=== PATIENT | male | born 1975 | race Caucasian/White ===

== ENCOUNTER 2016-12-18 18:45 | Observation (INO) | payer OTHER ==
[~2016-12-18] VITALS: Ht 175.3 cm; Wt 85.7 kg
--- NOTE | 2016-12-18 18:47 | NUR ---
PT BIBA FROM HOME FOLLOWING 1 WEEK OF NON-RADIATING SUB-STERNAL CHEST PAIN. PER PATIENT, HE HAS HAD HYPERTENSION THROUGHOUT THE WEEK, BUT BECAME CONCERNED WHEN HIS SBP WAS IN 180'S TODAY. PT CALLED HIS DOCTOR, WHO SUGGESTED THAT PT COME TO ED FOR EVALUATION. PER EMS, PT'S BP WAS 150/114 UPON ARRIVAL ON SCENE, 124/88 AFTER 1 X SL NITRO. BLOOD GLUCOSE 121. PT CURRENTLY STATES THAT CP HAS SUBSIDED SINCE THE NITRO, BUT HE NOW HAS A "POUNDING" HEADACHE
--- NOTE | 2016-12-18 18:51 | ED CARDIAC/CP/PALPITATIONS ---
History of Present Illness General Chief Complaint: Chest Pain Stated Complaint: CP Source: patient Exam Limitations: no limitations Vital Signs & Intake/Output Vital Signs & Intake/Output Vital Signs Date Time Temp Pulse Resp B/P B/P Pulse O2 O2 Flow FiO2 Mean Ox Delivery Rate 12/19 2300 97.9 68 16 120/68 97 Room Air 12/19 1600 98.1 72 20 112/70 95 Room Air 12/19 1557 132/84 12/19 0830 97.7 60 18 126/88 94 Room Air 12/19 0816 128/88 12/19 0406 98.1 65 16 128/88 93 Room Air 12/19 0314 97.2 65 22 128/80 98 Room Air ED Intake and Output 12/20 0000 12/19 1200 Intake Total 650 0 Output Total Balance 650 0 Intake, IV 0 Intake, Oral 650 0 Number 0 Bowel Movements Patient 189 lb Weight Allergies Coded Allergies: NSAIDS (Non-Steroidal Anti-Inflamma (GI UPSET 12/18/16) codeine (VOMITING 12/18/16) hydrocodone (From VICODIN) (VOMITING 12/18/16) Reconcile Medications Amlodipine Besylate 10 MG TABLET 1 TAB PO DAILY HIGH BLOOD PRESSURE (Reported ) Chlorthalidone 25 MG TABLET 1 TAB PO DAILY HIGH BLOOD PRESSURE (Reported) Duloxetine HCl 60 MG CAPSULE.DR 2 CAP PO DAILY DEPRESSION/NERVE PAIN ( Reported) Gabapentin 300 MG CAPSULE 1 CAP PO QAM PAIN CONTROL (Reported) Gabapentin 300 MG CAPSULE 2 CAP PO NOON PAIN CONTROL (Reported) Gabapentin 300 MG CAPSULE 3 CAP PO QPM PAIN CONTROL (Reported) Pantoprazole Sodium 40 MG TABLET.DR 1 TAB PO DAILY ACID REFLUX (Reported) Ropinirole HCl (Requip) 3 MG TABLET 1 TAB PO QPM RLS (Reported) Triage Nurses Notes Reviewed? yes Onset: Abrupt Duration: week(s): (1), intermittent Timing: single episode today Quality/Severity: moderate, ingestion Location: epigastric Radiation: arms (left arm), epigastric Activities at Onset: none Prior Chest Pain/Card Workup: no prior chest pain Nitro Today/Relief: 0.4 mg x 1, provided by EMS, complete relief Aspirin Today: no aspirin today Associated Symptoms: shortness of breath HPI: 41-year-old male history of acid reflux and hypertension biba for evaluation of chest pain and shortness of breath. Patient reports that over the last week has been having intermittent chest pain and shortness of breath both at rest and on exertion. Chest pain lasts for usually less than an hour before going away completely. Chest pain is located in the epigastric area and radiates downward into the abdomen. Patient also reports some radiation into the left arm. Patient reports that chest pain returned again today more severe than previous. Patient took his blood pressure and it was 189/111 so he decided to call the ambulance transported to the emergency department for evaluation. When EMS arrived his blood pressure was 150s over 90s and they administered one sublingual nitroglycerin tablet and patient's chest pain was completely resolved after the nitroglycerin. Currently patient is chest pain free and is not complaining of any shortness of breath. He does report a headache that developed after taking the nitroglycerin. He has never had any previous cardiac history or cardiac cath. He denies any crack cocaine use. In trauma or surgeries. No history of blood clots. Patient denies any nausea, vomiting, sweats, chills, lower extremity edema, hemoptysis, back pain. (ALLY MAXWELL,JUAN JOSÉ) Past History Medical History Any Pertinent Medical History? see below for history Surgical History Surgical History: none Psychosocial History What is your primary language Lao Family History Hx Contributory? Yes (ALLY MAXWELL,JUAN JOSÉ) Review of Systems Review of Systems Constitutional: Reports: see HPI. Respiratory: Reports: see HPI, short of breath. Cardiovascular: Reports: see HPI, chest pain. Neurological/Psychological: Reports: see HPI, headache. (ALLY MAXWELL,JUAN JOSÉ) Physical Exam Physical Exam General Appearance: well developed/nourished, no apparent distress, alert, awake , anxious Head: atraumatic, normal appearance Eyes: Bilateral: normal appearance, PERRL, EOMI. Ears, Nose, Throat: normal pharynx, normal ENT inspection, hearing grossly normal Neck: normal inspection, supple, full range of motion Respiratory: normal breath sounds, chest non-tender, no respiratory distress, lungs clear Cardiovascular: regular rate/rhythm, normal peripheral pulses Peripheral Pulses: 2+ radial (R), 2+ radial (L), 2+ dorsalis pedis (R), 2+ dorsalis pedis (L) Gastrointestinal: normal bowel sounds, soft, non-tender Back: normal inspection, normal range of motion Extremities: normal inspection, normal capillary refill, normal range of motion, no edema Neurologic/Psych: no motor/sensory deficits, awake, alert, oriented x 3, normal gait, normal mood/affect Reflexes: 2+: knee (R), knee (L). Skin: intact, normal color, warm/dry Lymphatic: no anterior cervical harlan Core Measures ACS in differential dx? Yes Severe Sepsis Present: No Septic Shock Present: No (BLACK PA-C,JUAN JOSÉ) Progress Differential Diagnosis: AMI, aortic dissection, CHF/pulm edema, costochondritis, musculoskeletal pain, myocarditis, pancreatitis, pericarditis, pneumonia, pneumothorax, pulmonary embolism, respiratory failure, unstable angina Plan of Care: Orders Procedure Date/time Status Nothing by Mouth 12/20 B Active MAGNESIUM 12/20 06 Active LIPID PANEL 12/20 06 Active HEPATIC FUNCTION PANEL 12/20 06 Active CBC WITHOUT DIFFERENTIAL 12/20 06 Active BASIC ELECTROLYTES PLUS BUN&CR 12/20 06 Active DIPYRIDAMOLE STRESS W/NUC IMAG 12/20 UNK Active Heart Healthy Diet 12/19 B Complete CBC WITHOUT DIFFERENTIAL 12/19 0829 Complete Change service to 12/19 0729 Active THYROID STIMULATING HORMONE 12/19 06 Complete TROPONIN LEVEL 12/19 06 Complete LIPID PANEL 12/19 06 Complete FREE T4 12/19 06 Complete EKG 12/19 0600 Active Vital Signs 12/19 0435 Complete Teach/Educate 12/19 0435 Active Pain Treatment and Response 12/19 0435 Active Nutritional Intake, Monitor 12/19 0435 Active Isolation 12/19 0435 Active Intake & Output 12/19 0435 Complete Patient Care Conference 12/19 0435 Active Activity/Ambulation 12/19 0435 Active Pathway - chart 12/19 0314 Active Pathway - chart 12/19 0313 Active Saline Lock 12/19 0203 Active Misc Message 12/19 0203 Active ED Holding Orders 12/19 0203 Active Vital Signs 12/19 0203 Active Code Status 12/19 0203 Active Lab Add-on Test 12/19 UNK Active VTE Mechanical Prophylaxis 12/19 UNK Active URINE DRUGS OF ABUSE 12/18 2159 Complete Intake & Output 12/18 2022 Active GLYCOSYLATED HGB 12/18 1915 Complete Current Medications Sig/José Start time Last Medication Dose Stop Time Status Admin Dipyridamole 50 MG ONE ONE 12/20 0900 AC (Persantine I.v. 5MG 12/20 0901 Per Ml (10ML Han)) Dextrose/Water 30 ML (D5w (Persantine Stress Test)) Gabapentin 900 MG QPM 12/19 2200 AC 12/19 (Neurontin) 2300 Ropinirole HCl 3 MG AT BEDTIME 12/19 2200 AC 12/19 (Requip) 2300 Atorvastatin Calcium 80 MG 1700 12/19 1700 AC 12/19 (Lipitor) 1557 Omeprazole 20 MG DAILY AC 12/19 1433 AC 12/19 (Prilosec) 1622 Sucralfate 1,000 MG BID 12/19 1433 AC 12/19 (Carafate) 2300 Losartan Potassium 25 MG DAILY 12/19 1247 AC 12/19 (Cozaar) 1557 Gabapentin 600 MG 1200 12/19 1200 AC 12/19 (Neurontin) 1303 Aspirin 81 MG DAILY 12/19 1024 AC 12/19 (Aspirin) 1303 Amlodipine Besylate 10 MG DAILY 12/19 1000 AC 12/19 (Norvasc) 0816 Duloxetine HCl 120 MG DAILY 12/19 1000 AC 12/19 (Cymbalta) 0816 Enoxaparin Sodium 40 MG DAILY 12/19 1000 AC 12/19 (Lovenox) 0816 Gabapentin 300 MG QAM 12/19 1000 AC (Neurontin) Tramadol HCl 50 MG Q6 PRN 12/19 0815 AC (Ultram) Acetaminophen 650 MG Q8P PRN 12/19 0315 AC (Tylenol) Laboratory Tests 12/19/16 0840: Troponin I < 0.01, Triglycerides 359 H, Cholesterol 323 H, LDL Cholesterol, Calc 212 H, HDL Cholesterol 40, Cholesterol/HDL Ratio 8 H, TSH 2.630, Free T4 0.93, CBC w Diff NO MAN DIFF REQ, RBC 5.98, MCV 87.0, MCH 28.7, RDW 14.2, MPV 8.1, Gran % 57.6, Lymphocytes % 28.7, Monocytes % 11.5 H, Eosinophils % 1.9, Basophils % 0.3, Absolute Granulocytes 4.2, Absolute Lymphocytes 2.1, Absolute Monocytes 0.8 H, Absolute Eosinophils 0.1, Absolute Basophils 0, PUBS MCHC 33.0 Patient will need a workup for chest pain of possible cardiac origin. 8:37 PM: Initial EKG and troponin were negative. Pt continues to be chest pain free. D-dimer is negative. Patient will require an additional EKG and troponin. Patient's heart score currently is 3. History is moderately suspicious, he is less than age 45, he does have some nonspecific T waves and allergies on EKG, and he has risk factors including smoking and HTN. Will follow up on additional troponins and EKGs. Care discussed with Dr Bui and he agrees with the plan. 11:25PM: EKG and troponin recheck pending. Pt signed out to Dr John. (JUAN JOSÉ CANALES PA-C) Diagnostic Imaging: Viewed by Me: Radiology Read. Initial ED EKG: sinus tach, borderline LAD, non-specific T wave abn inferior leads, borderline prolonged QT >475 Hand-Off Endorsed To: COLLEEN JOHN MD Endorsed Time: 2321 Pending: consult (cardiology ), EKG, labs (JUAN JOSÉ CANALES PA-C) Repeat EKG: unchanged (COLLEEN JOHN MD) Departure Departure Disposition: STILL A PATIENT Condition: Stable Clinical Impression Primary Impression: Chest pain Qualifiers: Chest pain type: unspecified Qualified Code: R07.9 - Chest pain, unspecified Referrals: UNKNOWN Departure Forms: Customer Survey General Discharge Information (JUAN JOSÉ CANALES PA-C) Observation Note Spoke With: DONTE BUI,[facility] Physician Advisor Notified: BENTLEY BUI DO Place Patient In: Non-ED OBS Care Area Rationale for Observation: My rational for observation is as follows . pt with nitro responsive chest pain in the context of sbp of 189... ptmerits monitoring and stress test in AM. pt is chest pain free in ED after nitro... discussed with dr. euceda. (COLLEEN JOHN MD) Critical Care Note Critical Care Note Critical Care Time: non-applicable (JUAN JOSÉ CANALES PA-C) Critical Care Note Critical Care Time: 30-74 min (COLLEEN JOHN MD)
--- NOTE | 2016-12-18 19:20 | NUR ---
PT EVALUATED BY JUAN JOSÉ BARNES
--- NOTE | 2016-12-18 19:24 | NUR ---
PT STATES HEADACHE FROM NITRO IS FADING. CONTINUES TO DENY HEST PAIN AT THIS TIME.
[2016-12-18 19:34] LABS: ABSOLUTE BASOPHIL COUNT 0.1 /CUMM (0.0-0.2); ABSOLUTE EOSINOPHIL COUNT 0.2 /CUMM (0.0-0.7); ABSOLUTE GRANULOCYTE CT 6.5 /CUMM (1.4-6.5); ABSOLUTE LYMPH COUNT 2.5 /CUMM (1.2-3.4); BASOPHIL % 0.8 % (0.0-2.0); EOSINOPHIL % 1.7 % (0-5); GRANULOCYTE % 63.6 % (42.2-75.2); MEAN CORPUSCULAR HGB 28.8 PG (27.0-31.0); MEAN CORPUSCULAR HGB CONC 33.2 G/DL (33.0-37.0); MEAN CORPUSCULAR VOLUME 86.7 FL (80.0-94.0); MEAN PLATELET VOLUME 7.9 FL (7.4-10.4); PLATELET COUNT 287 /CUMM (130-400); RED BLOOD CELL CT 6.34 /CUMM (4.70-6.10); WHITE BLOOD CELL COUNT 10.3 /CUMM (4.8-10.8)
--- NOTE | 2016-12-18 19:42 | RADIOLOGY REPORT ---
EXAMINATION: XR PORTABLE CHEST CLINICAL INFORMATION: Chest pain, shortness of breath. COMPARISON: None TECHNIQUE: Portable frontal view of the chest was obtained. FINDINGS: The cardiomediastinal silhouette is unremarkable. The lungs and pleural spaces appear clear without evidence of congestion, consolidation, or significant appearing effusion or atelectasis. There is no evidence of pneumothorax or pulmonary edema. Included osseous structures appear largely unremarkable. IMPRESSION: Unremarkable single view chest x-ray.
[2016-12-18] MEDS ORDERED: CHLORTHALIDONE25 M1 PO (20:11)
[2016-12-18] MEDS ORDERED: AMLODIPINE BESY10 M1 PO (20:11)
[2016-12-18] MEDS ORDERED: PANTOPRAZOLE SO40 M1 PO (20:12)
[2016-12-18] MEDS ORDERED: DULOXETINE HCL60 MG PO (20:13)
[2016-12-18] MEDS ORDERED: GABAPENTIN300 M2 PO ×3 (20:14→20:17)
[2016-12-18] MEDS ORDERED: REQUIP3 M1 PO (20:19)
--- NOTE | 2016-12-18 21:41 | NUR ---
RE-ASSESSMENT PERFORMED, PT DENIES CHEST PAIN OR SOB. CM SHOWS NSR, HR 90. ALL V.S.S. CLINICAL STATUS UNCHANGED.
--- NOTE | 2016-12-18 21:51 | NUR ---
VITALS TAKEN. PT UP TO RESTROOM TO VOID
--- NOTE | 2016-12-18 22:01 | NUR ---
URINE TRIO SENT TO LAB.
--- NOTE | 2016-12-18 23:26 | NUR ---
REPEAT EKG DONE BY [facility] BLOOD DRAWN DIRECTED FOR 2ND TROPONIN PT MOVED TO ROOM # 10 AND ENDORSED TO [employer]ER.
--- NOTE | 2016-12-19 00:54 | NUR ---
HOSPITALIST CALLED TO EVALUATE PT.
--- NOTE | 2016-12-19 01:57 | NUR ---
PT BED ASSIGNMENT 189-2
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
--- NOTE | 2016-12-19 03:09 | NUR ---
REPORT TO VIN. PT IS STABLE. NO CO OF CP
--- NOTE | 2016-12-19 03:28 | NUR ---
WHILE DOING DISCHARGE VS, HEPLOCK NOTED TO NOT BE HOSPITAL TYPE, LOCK DISCONTINUED, NEW HHEPLOCK INSERTED.
[2016-12-19 04:06] VITALS: BP 128/88
[2016-12-19 08:30] VITALS: BP 126/88
[2016-12-19 09:26] LABS: ABSOLUTE BASOPHIL COUNT 0 /CUMM (0.0-0.2); ABSOLUTE EOSINOPHIL COUNT 0.1 /CUMM (0.0-0.7); ABSOLUTE GRANULOCYTE CT 4.2 /CUMM (1.4-6.5); ABSOLUTE LYMPH COUNT 2.1 /CUMM (1.2-3.4); ABSOLUTE MONOCYTE COUNT 0.8 /CUMM (0.10-0.60); BASOPHIL % 0.3 % (0.0-2.0); EOSINOPHIL % 1.9 % (0-5); GRANULOCYTE % 57.6 % (42.2-75.2); MEAN CORPUSCULAR HGB 28.7 PG (27.0-31.0); MEAN PLATELET VOLUME 8.1 FL (7.4-10.4); PLATELET COUNT 252 /CUMM (130-400); RBC DISTRIBUTION WIDTH 14.2 % (11.5-14.5); RED BLOOD CELL CT 5.98 /CUMM (4.70-6.10); WHITE BLOOD CELL COUNT 7.3 /CUMM (4.8-10.8)
[2016-12-19] MEDS ORDERED: AMBIEN5 M1 PO (11:34)
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
--- NOTE | 2016-12-19 12:37 | ECHOCARDIOGRAM REPORT ---
SOURAV MOREJON Age: 41 : 1975 Gender: M Exam Date: 12/19/2016 10:57 Exam Location: [address] [facility] Ht (in): 69 Wt (lb): 189 BSA: 2.06 BP: 128 / 88 Ordering Physician: SHELBY MCINTYRE MD Referring Physician: SHELBY MCINTYRE MD Technologist: Ady Mesa [facility] Room Number: 189-8 Indications: Chest Pain Rhythm: Sinus Technical Quality: Fair, Technically difficult study FINDINGS Left Ventricle Normal size left ventricle. No obvious regional wall motion abnormalities. Normal left ventricular ejection fraction estimated at 60-65%. Right Ventricle Right ventricle not well visualized, grossly normal. Right Atrium Normal right atrial size. Left Atrium Normal left atrial size. Mitral Valve Structurally normal mitral valve. Trace mitral regurgitation. Aortic Valve Structurally normal trileaflet aortic valve. No aortic stenosis. No aortic regurgitation. Tricuspid Valve Tricuspid valve not well visualized, grossly normal. Trace tricuspid regurgitation. Pulmonic Valve Pulmonic valve not well visualized, grossly normal. Pericardium Normal pericardium. No pericardial effusion. Great Vessels Normal size aortic root and proximal ascending aorta. CONCLUSIONS 1. This was a technically difficult examination due to the patient's body habitus. 2. The aortic valve is trileaflet and normal. 3. The mitral valve appears anatomically normal. Minimal mitral insufficiency is present. 4. There is no significant pericardial fluid detected. 5. The left ventricular chamber size and systolic funtion appear normal with no obvious resting wall motion abnormalities. 6. Minimal tricuspid insufficiency is present. The RV systolic pressure could not be accurately assessed. Anna Hendricks M.D. (Electronically Signed) Final Date: 19 December 2016 12:37 MEASUREMENTS (Male / Female) Normal Values 2D ECHO LV Diastolic Diameter PLAX 4.5 cm 4.2 - 5.9 / 3.9 - 5.3 cm LV Systolic Diameter PLAX 2.7 cm 2.1 - 4.0 cm LV Fractional Shortening PLAX 40.0 % 25 - 46 % LV Ejection Fraction 2D Teich 70.8 % IVS Diastolic Thickness 1.1 cm LVPW Diastolic Thickness 1.0 cm LV Relative Wall Thickness 0.5 RV Internal Dim ED PLAX 3.5 cm 1.9 - 3.8 cm LVOT Diameter 2.0 cm Aortic Root Diameter 2.9 cm LA Systolic Diameter LX 3.3 cm 3.0 - 4.0 / 2.7 - 3.8 cm LA Volume 24.0 cm 18 - 58 / 22 - 52 cm Ascending Aorta Diameter 2.9 cm DOPPLER AV Peak Velocity 130.0 cm/s AV Peak Gradient 6.8 mmHg AV Mean Velocity 82.3 cm/s AV Mean Gradient 3.0 mmHg AV Velocity Time Integral 24.9 cm LVOT Peak Velocity 96.3 cm/s LVOT Peak Gradient 3.7 mmHg LVOT Mean Velocity 55.6 cm/s LVOT Mean Gradient 2.0 mmHg LVOT Velocity Time Integral 20.5 cm LVOT Stroke Volume 64.4 cm AV Area Cont Eq vti 2.6 cm AV Area Cont Eq pk 2.3 cm MV Peak Velocity 78.6 cm/s MV Peak Gradient 2.5 mmHg MV Mean Velocity 45.5 cm/s MV Mean Gradient 1.0 mmHg Mitral E Point Velocity 76.5 cm/s Mitral A Point Velocity 78.5 cm/s Mitral E to A Ratio 1.0 MV PHT Velocity 77.4 cm/s MV Deceleration [facility] 268.0 cm/s MV Pressure Half Time 86.6 ms MV Area PHT 2.5 cm MV Deceleration Time 282.0 ms TR Peak Velocity 238.0 cm/s TR Peak Gradient 22.7 mmHg Right Atrial Pressure 10.0 mmHg Pulmonary Artery Systolic Pressu 32.7 mmHg Right Ventricular Systolic Press 32.7 mmHg PV Peak Velocity 112.0 cm/s PV Peak Gradient 5.0 mmHg PV Mean Velocity 69.3 cm/s PV Mean Gradient 2.0 mmHg PV Velocity Time Integral 21.8 cm LV E' Lateral Velocity 11.3 cm/s Mitral E to LV E' Lateral Ratio 6.8 LV E' Septal Velocity 8.5 cm/s Mitral E to LV E' Septal Ratio 9.0
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
--- NOTE | 2016-12-19 13:55 | Event Note ---
Event Note Event Note: Discussed with Dr. Daly and Dr. Durham. It was decided that we will do Dipridamole stress test on 12/20/2016. If stress test is positive, then we will do angiography. Discussed with Dr. Griffin about the high hemoglobin and hematocrit. He wanted to know the baseline hemoglobin before thinking about polycythemia vera. We will get the records from Dr. Robbie Bloom. Discussed with the PCP. His baseline hemoglobin in 2014 was 17.3, hematocrit 48.5 and similar picture in 2013.
[2016-12-19 16:00] VITALS: BP 112/70
[2016-12-19 23:00] VITALS: BP 120/68
[2016-12-20 07:56] LABS: ABSOLUTE BASOPHIL COUNT 0 /CUMM (0.0-0.2); ABSOLUTE EOSINOPHIL COUNT 0.2 /CUMM (0.0-0.7); ABSOLUTE GRANULOCYTE CT 5.8 /CUMM (1.4-6.5); ABSOLUTE LYMPH COUNT 2.3 /CUMM (1.2-3.4); BASOPHIL % 0.4 % (0.0-2.0); EOSINOPHIL % 1.9 % (0-5); GRANULOCYTE % 61.8 % (42.2-75.2); MEAN CORPUSCULAR HGB CONC 34.2 G/DL (33.0-37.0); MEAN CORPUSCULAR VOLUME 84.8 FL (80.0-94.0); MEAN PLATELET VOLUME 8.3 FL (7.4-10.4); PLATELET COUNT 263 /CUMM (130-400); RBC DISTRIBUTION WIDTH 14.2 % (11.5-14.5); RED BLOOD CELL CT 5.78 /CUMM (4.70-6.10); WHITE BLOOD CELL COUNT 9.4 /CUMM (4.8-10.8)
[2016-12-20 08:55] VITALS: BP 130/80
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
--- NOTE | 2016-12-20 11:25 | PN- Cardiology ---
Subjective Subjective: No further chest discomfort. Also denies any palpitations, shortness of breath, etc. Maintaining sinus rhythm without any significant arrhythmias on telemetry. Objective Vital Signs and I&Os Vital Signs Date Time Temp Pulse Resp B/P B/P Pulse O2 O2 Flow FiO2 Mean Ox Delivery Rate 12/20 0855 97.5 64 16 130/80 94 Room Air 12/19 2300 97.9 68 16 120/68 97 Room Air 12/19 1600 98.1 72 20 112/70 95 Room Air 12/19 1557 132/84 Intake & Output 12/20 1600 12/20 0800 12/20 0000 12/19 1600 12/19 0800 12/19 0000 Intake Total 0 650 0 0 Output Total Balance 0 650 0 0 Intake, IV 0 0 0 Intake, Oral 0 650 0 Number 0 0 Bowel Movements Patient 189 lb 189 lb Weight Weight Reported by Patient Measurement Method Physical Exam: Well-developed, well-nourished middle-aged male in no acute distress. Vital signs: See above. Neck: No JVD, no bruits. Lungs: Clear to auscultation bilaterally. Heart: S1, S2 with no murmur, gallop, or rub appreciated. I fifth ICS at MCL. Abdomen: Soft, nontender, positive bowel sounds. Extremities: No edema. Peripheral pulses: Symmetrical and intact. Current Medications: Current Medications Sig/José Start time Last Medication Dose Route Stop Time Status Admin Acetaminophen 650 MG Q8P PRN 12/19 0315 AC PO Amlodipine Besylate 10 MG DAILY 12/19 1000 AC 12/19 PO 0816 Aspirin 81 MG DAILY 12/19 1024 AC 12/19 PO 1303 Atorvastatin Calcium 80 MG 1700 12/19 1700 AC 12/19 PO 1557 Dipyridamole 50 MG ONE ONE 12/20 0900 DC Dextrose/Water 30 ML IV 12/20 0901 Duloxetine HCl 120 MG DAILY 12/19 1000 AC 12/19 PO 0816 Enoxaparin Sodium 40 MG DAILY 12/19 1000 AC 12/19 SC 0816 Gabapentin 900 MG QPM 12/19 2200 AC 12/19 PO 2300 Gabapentin 600 MG 1200 12/19 1200 AC 12/19 PO 1303 Gabapentin 300 MG QAM 12/19 1000 AC PO Losartan Potassium 25 MG DAILY 12/19 1247 AC 12/19 PO 1557 Omeprazole 20 MG DAILY AC 12/19 1433 AC 12/19 PO 1622 Ropinirole HCl 3 MG AT BEDTIME 12/190 AC 12/19 PO 2300 Sucralfate 1,000 MG BID 12/19 1433 AC 12/19 PO 2300 Tramadol HCl 50 MG Q6 PRN 12/19 0815 AC PO Results Last 48 Hrs of Labs/Mics: Laboratory Tests 12/20/16 0640: Anion Gap 11, Estimated GFR > 60, BUN/Creatinine Ratio 20.0, Magnesium 2.0, Total Bilirubin 1.0, Direct Bilirubin 0.3, AST 40, ALT 83 H, Alkaline Phosphatase 98, Total Protein 7.2, Albumin 4.3, Triglycerides 351 H, Cholesterol 293 H, LDL Cholesterol, Calc 185 H, HDL Cholesterol 38 L, Cholesterol/HDL Ratio 8 H, CBC w Diff NO MAN DIFF REQ, RBC 5.78, MCV 84.8, MCH 29.0, RDW 14.2, MPV 8.3, Gran % 61.8, Lymphocytes % 25.0, Monocytes % 10.9 H, Eosinophils % 1.9, Basophils % 0.4, Absolute Granulocytes 5.8, Absolute Lymphocytes 2.3, Absolute Monocytes 1.0 H, Absolute Eosinophils 0.2, Absolute Basophils 0, PUBS MCHC 34.2 12/19/16 0840: Troponin I < 0.01, Triglycerides 359 H, Cholesterol 323 H, LDL Cholesterol, Calc 212 H, HDL Cholesterol 40, Cholesterol/HDL Ratio 8 H, TSH 2.630, Free T4 0.93, CBC w Diff NO MAN DIFF REQ, RBC 5.98, MCV 87.0, MCH 28.7, RDW 14.2, MPV 8.1, Gran % 57.6, Lymphocytes % 28.7, Monocytes % 11.5 H, Eosinophils % 1.9, Basophils % 0.3, Absolute Granulocytes 4.2, Absolute Lymphocytes 2.1, Absolute Monocytes 0.8 H, Absolute Eosinophils 0.1, Absolute Basophils 0, PUBS MCHC 33.0 12/18/160: Troponin I < 0.01 12/18/162158: Urine Opiates Screen < 100.00, Methadone Screen 51, Barbiturate Screen < 60, Ur Phencyclidine Scrn < 6.00, Amphetamines Screen < 100, U Benzodiazepines Scrn < 85, Urine Cocaine Screen < 50, Urine Cannabis Screen 9.60, Urinalysis LIGHT H, Urine Color YEL, Urine Clarity CLEAR, Urine pH 6.0, Ur Specific [place] 1.025, Urine Protein NEG, Urine Ketones NEG, Urine Nitrite NEG, Urine Bilirubin NEG, Urine Urobilinogen 0.2, Ur Leukocyte Esterase NEG, Ur Microscopic SEDIMENT EXAMINED, Urine RBC 1-3, Urine WBC RARE, Ur Epithelial Cells FEW, Urine Bacteria RARE H, Urine Mucus MOD H, Urine Hemoglobin TRACE-INTACT H, Urine Glucose NEG 12/18/162024: Lipase Cancelled 12/18/161916: Magnesium Cancelled 12/18/161914: Anion Gap 15, Estimated GFR > 60, BUN/Creatinine Ratio 17.5, Glucose 106 H, Hemoglobin A1c 5.5, Calcium 10.4 H, Magnesium 1.8, Total Bilirubin 0.8, AST 54, ALT 100 H, Alkaline Phosphatase 114, Troponin I < 0.01, Total Protein 8.2, Albumin 4.9, Globulin 3.3, Albumin/Globulin Ratio 1.5, Lipase 381 H, D-Dimer High Sensitivty < 200, CBC w Diff NO MAN DIFF REQ, RBC 6.34 H, MCV 86.7, MCH 28.8, RDW 14.0, MPV 7.9, Gran % 63.6, Lymphocytes % 24.1, Monocytes % 9.8 H, Eosinophils % 1.7, Basophils % 0.8, Absolute Granulocytes 6.5, Absolute Lymphocytes 2.5, Absolute Monocytes 1.0 H, Absolute Eosinophils 0.2, Absolute Basophils 0.1, PUBS MCHC 33.2 Recent Imaging Studies: Echocardiogram (12/19/2016): This was a technically difficult examination due to the patient's body habitus. The aortic valve is trileaflet and normal. The mitral valve appears anatomically normal. Minimal mitral insufficiency is present. There is no significant pericardial fluid detected. The left ventricular chamber size and systolic funtion appear normal with no obvious resting wall motion abnormalities. Minimal tricuspid insufficiency is present. The RV systolic pressure could not be accurately assessed. Assessment/Plan Assessment/Plan [id number] w/ hx heavy tobacco use, HTN, HLD, & FH for CAD who presented w/ 2 prolonged episodes of CP w/ the 2nd "relieved" by SL NTG 1 w/i 20 min, w/o ECG changes or troponin I elevation. Although, he has multiple risk factors for CAD, his presenting complaints had atypical features given their onset at rest and prolonged duration. Nonetheless , he does have multiple risk factors for CAD. Given his moderate pretest probability for CAD, a pharmacologic stress test was performed this morning. He had no electrocardiographic changes observed and the stress imaging portion of the study, as well as, the rest imaging portion of the study are pending. An echocardiogram would also be reasonable to assess for overall LV function, hypertrophy, wall motion, RV function, estimated PA pressure, etc. Fortunately, he has had no further chest discomfort and the plan will be for discharge for further outpatient evaluation and management if his stress test is negative for ischemia. Continue telemetry? Yes
[2016-12-20] MEDS ORDERED: ATORVASTATIN CA80 M1 PO ×2 (14:12→16:30)
[2016-12-20] MEDS ORDERED: CARAFATE1 G1 PO ×2 (14:12→16:30)
[2016-12-20] MEDS ORDERED: ASPIRIN EC81 M1 PO ×2 (14:13→16:30)
--- NOTE | 2016-12-20 14:19 | Patient Discharge Instructions ---
Discharge Instructions General Discharge Information You were seen/treated for: Chest pain and we evaluated for coronary disease by doing stress test Special Instructions: please follow up with business ethics professor with in a week of discharge. please follow up with stock checker if your blood count remain elevated. Please quit smoking. You can join free smoking cessation program of [facility]. Diet Continue normal diet: No Recommended Diet: Heart Healthy, Low Fat Acute Coronary Syndrome Inclusion Criteria At DC or during hospital stay patient has or had the following: ACS DIAGNOSIS No Discharge Core Measures Meds if any: Prescribed or Continued at Discharge Meds if any: NOT Prescribed or Continued at Discharge Congestive Heart Failure Inclusion Criteria At DC or during hospital stay patient has or had the following: CHF DIAGNOSIS No Discharge Core Measures Meds if any: Prescribed or Continued at Discharge Meds if any: NOT Prescribed or Continued at Discharge Cerebrovascular accident Inclusion Criteria At DC or during hospital stay patient has or had the following: CVA/TIA Diagnosis No Discharge Core Measures Meds if any: Prescribed or Continued at Discharge Meds if any: NOT Prescribed or Continued at Discharge Venous thromboembolism Inclusion Criteria VTE Diagnosis No VTE Type NONE VTE Confirmed by (Test) NONE Discharge Core Measures - Per Current guidelines, there needs to be overlap - treatment for the first 5 days of Warfarin therapy. - If discharged on Warfarin prior to 5 days of - overlap therapy, the patient will need to be - assessed for post discharge needs including - *Post discharge parental anticoagulation - *Warfarin and/or parental anticoagulation education - *Follow up date to check INR post discharge At least 5 days overlap therapy as Inpatient No Meds if any: Prescribed or Continued at Discharge Note: Overlap Therapy is Warfarin and Anticoagulant Meds if any: NOT Prescribed or Continued at Discharge
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
--- NOTE | 2016-12-20 15:15 | NUCLEAR MEDICINE REPORT ---
PERSANTINE STRESS AND RESTING SPECT MYOCARDIAL PERFUSION IMAGING STUDY WITH GATED SPECT IMAGES: CLINICAL INDICATION: Angina. PROCEDURE: Regional myocardial perfusion was assessed using a 1 day protocol. Stress images were obtained on 12/20/2016 following the intravenous administration of 18.7 mCi Tc 99m Myoview. Stress consisted of 50 mg Persantine given intravenously. Following the sestamibi injection, 125 mg aminophylline was given intravenously. Rest images were obtained 12/20/2016 following the intravenous administration of 30.7 mCi Technetium 99m Myoview. Single photon emission tomographic (SPECT) images were obtained. SPECT images were acquired in a 64 x 64 matrix of 64 projections over 180 degrees. These were reconstructed into standard short axis, horizontal and vertical long axis cardiac projections. FINDINGS: The post stress images demonstrate the left ventricular chamber to be normal in size. There is homogeneous distribution of activity in the left ventricular myocardium with no regions of abnormally decreased activity noted. The resting images also demonstrate homogeneous distribution of activity in the left ventricular myocardium, and are not significantly changed from the post stress images. The images were obtained using a gated SPECT technique, which permits visualization of wall motion and calculation of the left ventricular ejection fraction. No left ventricular wall motion abnormalities are noted on either the stress or resting study. The calculated left ventricular ejection fraction is 67% on the stress study. No previous study is available for comparison. IMPRESSION: Normal Persantine stress and resting myocardial perfusion study with normal left ventricular wall motion and ejection fraction.
--- NOTE | 2016-12-20 15:55 | IV DIPYRIDAMOLE NUCLEAR STRESS ---
Clinical Diagnosis: Chest Pain Customer Consulting Manager: Citlali Thompson IV DIPYRIDAMOLE INFUSED: 50 mg IV AMINOPHYLLINE INFUSED: 125 mg PATIENT WEIGHT: 189 lbs INTERPRETATION: The patient's baseline EKG revealed sinus rhythm and poor R wave progression in leads V1-V3 at 55 BPM. Baseline B/P 148/90 mm Hg. The patient received 50 mg of dipyridamole infused intravenously over a 4 minute period. TC-99M or Myoview was injected after dipyridamole infusion. The patient complained of feeling "warm and " that promptly resolved after the administration of IV aminophylline 125 mg x 1. There were no EKG changes seen following pharmacologic infusion. Arrhythmias: None IMPRESSION: The test was supervised by the interpreting Information Technology Internship, who was in attendance during the entire test. No EKG evidence of stress induced myocardial ischemia. See separately dictated Nuclear Report.
[2016-12-20 16:24] VITALS: BP 144/88
== END 2016-12-20 19:05 ==
LOC: ERH 18:45 → 1NO 12-19 00:41 → ERHI 12-19 00:41 → ENRESERV 12-19 01:46 → 1NO 12-19 03:48
PROVIDERS: Internal Medicine; Internal Medicine Adolescent Medicine; Physician Assistant Medical; ADMIT Student in an Organized Health Care Education/Training Program
DX: R07.9 Chest pain, unspecified (principal); E78.5 Hyperlipidemia, unspecified; E78.1 Pure hyperglyceridemia; I10 Essential (primary) hypertension; F17.200 Nicotine dependence, unspecified, uncomplicated; K21.9 Gastro-esophageal reflux disease without esophagitis; Z82.49 Family history of ischemic heart disease and other diseases of the circulatory system
CPT/HCPCS: 36415; 78452; 80307; 81001; 82436; 93005; 93010; 93016; 93017; 93306; 96372; A9502; G0378; J1245; J1650; J3490

== ENCOUNTER → 2018-02-03 | Day surgery (SDC) | payer OTHER ==
[~2018-02-03] VITALS: Ht 175.3 cm; Wt 95.3 kg
[~2018-02-03] MED LIST: AMBIEN5 M1 PO; AMLODIPINE BESY10 M1 PO; ASPIRIN EC81 M1 PO; ATORVASTATIN CA80 M1 PO; CARAFATE1 G1 PO; CHLORTHALIDONE25 M1 PO; DULOXETINE HCL60 MG PO; GABAPENTIN300 M2 PO; MEDROL4 M2 PO; PANTOPRAZOLE SO40 M1 PO; PERCOCET 5-3251 EACH PO; REQUIP3 M1 PO; VALIUM5 M2 PO
--- NOTE | 2018-02-03 14:04 | Operative Report ---
Operative/Inv Procedure Report Surgery Date: 02/03/18 Name of Procedure: Robotic laparoscopic 12 cm mesh repair of reducible umbilical hernia Pre-Operative Diagnosis: Reducible umbilical hernia Post-Operative Diagnosis: Same Estimated Blood Loss: scant Surgeon/Radiation Monitor: Mehreen BUI,Anil BARNES Anesthesia: general endotracheal tube Operative/Procedure Note Note: Patient was positioned supine on the table. After successful induction of general anesthesia the abdomen was clipped prepped and draped in usual sterile fashion. The abdominal skin is marked to guide where the mesh will lay, centered under the defect, and where the 3 8 mm robotic trochars will be positioned, centered in the left anterior axillary line between the ribs and the iliac crest. After injection of local anesthetic at a spot in the mid to lateral left subcostal area, a horizontal 1 cm incision was made with a 15 blade. Using the plastic pointed-tipped translucent 8 mm with a metal robotic trocar and the camera inserted, the abdominal wall was traversed through this incision, watching on the screen, as the trocar passes through the layers, alternating colors, yellow fat white fascia red muscle, until the tip just seems to rosas the inner thin peritoneal layer. At that point, I stop pushing and check if it's open by turning on the gas. If the belly insufflates then you know you can advance that large trocar into an empty space more directly without injuring the viscera. The gas was turned on to 15 mm. At this point you can see the umbilical ventral defect, the incarcerated fat and omentum was reduced. Next the 2 remaining 8 mm robotic trochars are placed one in the mid abdomen axillary line as mentioned in one lower down above the iliac crest. The robot then is brought to the patient attached docked and targeted. Then on the near side a peritoneal flap is started by scoring it measuring roughly 6 cm from the defect towards the left first scoring the peritoneum in a vertical line and then completing the incision with cautery keeping the flap thin paying particular care to not include the transversalis fascia or even the rectus sheath posterior leaf, and continuing that flap across to the right past the defect also on that side at least 6 cm, the defect was approximately 2. This defect was then closed with a running continuous 0 V lock, absorbable. We then chose a Velcro type of mesh not coated sized it to 12 cm marked the rough surface rolled up like a scroll and stuffed down one of the trochars centered it over the defect on the near side there was one part that was growing a little bit we tacked that down into place with interrupted 3-0 Vicryl suture otherwise the mesh laid nicely and flat we had stopped corners to prevent curling it fit well within the flap that we had created and then we closed the flap that vertical line on the near side with a running 2-0 V lock suture. Next we checked for hemostasis and then undocked letting the gas escape pulling out the instruments and the trochars these 3 incisions were small there was no fascial closure needed and we then closed the skin with subcuticular 4-0 Monocryl, and then Mastisol, Steri-Strips and Band-Aids. Overall estimated blood loss was minimal, lap and sponge counts were correct, wound expectancy was clean, IV fluids crystalloid, complications none, patient tolerated the procedure well, did not significantly rice during extubation and was returned to the recovery room in satisfactory condition.
== END ==
LOC: STS 06:40
DX: K42.9 Umbilical hernia without obstruction or gangrene (principal); I10 Essential (primary) hypertension; K21.9 Gastro-esophageal reflux disease without esophagitis; F17.200 Nicotine dependence, unspecified, uncomplicated; G47.33 Obstructive sleep apnea (adult) (pediatric); M19.90 Unspecified osteoarthritis, unspecified site
CPT/HCPCS: 49652; 64488; S2900; 36415; C1781; J0131; J0690; J2250; J3490

== ENCOUNTER 2018-02-08 23:27 | Emergency (ER) | payer OTHER ==
[~2018-02-08] VITALS: Ht 175.3 cm; Wt 95.3 kg
--- NOTE | 2018-02-09 00:52 | CT SCAN REPORT ---
EXAMINATION: CT ABDOMEN AND PELVIS WITHOUT CONTRAST CLINICAL INFORMATION: Left lower quadrant pain. COMPARISON: None TECHNIQUE: Multidetector volumetric imaging was performed from the superior aspect of the liver through the pubic symphysis. Sagittal and coronal reformatted images were obtained on the technologist's workstation. DLP: 596 mGy-cm FINDINGS: LUNG BASES: The visualized lung bases are unremarkable. LIVER, GALLBLADDER, AND BILIARY TREE: The liver is normal in size, shape, and attenuation. No focal hepatic lesion or biliary ductal dilatation is present. The gallbladder is unremarkable with no evidence of radiopaque gallstones, gallbladder wall thickening, or obvious pericholecystic inflammatory changes. PANCREAS: Unremarkable. SPLEEN: Unremarkable. ADRENAL GLANDS: Unremarkable. KIDNEYS AND URETERS: The kidneys are normal in size, shape, and attenuation. No hydronephrosis, hydroureter, or calculi seen. No perinephric stranding. BLADDER: Unremarkable. GASTROINTESTINAL TRACT: The stomach is unremarkable. The small bowel is normal in caliber. There is no obstruction. Normal appendix. No colonic wall thickening or inflammation. Minimal diverticulosis of the sigmoid colon. No diverticulitis. No free air or free fluid. There is very faint stranding in the fat adjacent to the descending colon, with the adjacent bowel appearing unremarkable. On coronal imaging this raises the possibility of epiploic appendagitis. ABDOMINAL WALL: No significant hernia is appreciated. LYMPH NODES: Normal. VASCULAR: Normal caliber aorta with mild atherosclerotic calcifications. PELVIC VISCERA: The prostate and seminal vesicles are unremarkable. OSSEOUS STRUCTURES: No acute or suspicious osseous abnormality. Mild degenerative change throughout the spine. Irregularity of the left iliac bone likely associated with a graft harvest site. IMPRESSION: Minimal colonic diverticulosis without convincing evidence for diverticulitis. There is minimal inflammation in the left lower quadrant fat adjacent to the descending colon with the adjacent colon appearing unremarkable. This raises the possibility of epiploic appendagitis.
[2018-02-09 01:37] LABS: ABSOLUTE BASOPHIL COUNT 0.2 /CUMM (0.0-0.2); ABSOLUTE EOSINOPHIL COUNT 0.2 /CUMM (0.0-0.7); ABSOLUTE LYMPH COUNT 3.5 /CUMM (1.2-3.4); BASOPHIL % 1.5 % (0.0-2.0); EOSINOPHIL % 1.2 % (0-5); GRANULOCYTE % 62.5 % (42.2-75.2); HEMATOCRIT 47.7 % (42-52); MEAN CORPUSCULAR HGB CONC 34.5 G/DL (33.0-37.0); MEAN CORPUSCULAR VOLUME 86.8 FL (80.0-94.0); MEAN PLATELET VOLUME 8.2 FL (7.4-10.4); PLATELET COUNT 286 /CUMM (130-400); WHITE BLOOD CELL COUNT 12.8 /CUMM (4.8-10.8)
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
[2018-02-09] MEDS ORDERED: DILAUDID2 M1 PO ×3 (03:14→09:28)
[2018-02-09 03:16] VITALS: BP 144/88
== END 2018-02-09 03:29 ==
LOC: ERH 23:27
PROVIDERS: Physician Assistant Medical
DX: G89.18 Other acute postprocedural pain (principal)
CPT/HCPCS: 74176; 96372

== ENCOUNTER 2018-03-12 21:12 | Inpatient (IN) | payer OTHER ==
[~2018-03-12] VITALS: Ht 175.3 cm; Wt 91.7 kg
[~2018-03-12 21:12] MED LIST changes: +DILAUDID2 M1 PO
[2018-03-12 21:41] LABS: ABSOLUTE BASOPHIL COUNT 0 /CUMM (0.0-0.2); ABSOLUTE EOSINOPHIL COUNT 0.1 /CUMM (0.0-0.7); ABSOLUTE GRANULOCYTE CT 5.2 /CUMM (1.4-6.5); ABSOLUTE LYMPH COUNT 2.9 /CUMM (1.2-3.4); ABSOLUTE MONOCYTE COUNT 0.7 /CUMM (0.10-0.60); BASOPHIL % 0.5 % (0.0-2.0); EOSINOPHIL % 1.2 % (0-5); GRANULOCYTE % 58.1 % (42.2-75.2); HEMATOCRIT 51.4 % (42-52); MEAN CORPUSCULAR HGB 29.3 PG (27.0-31.0); MEAN CORPUSCULAR HGB CONC 34.1 G/DL (33.0-37.0); MEAN PLATELET VOLUME 7.5 FL (7.4-10.4); PLATELET COUNT 316 /CUMM (130-400); RBC DISTRIBUTION WIDTH 13.1 % (11.5-14.5); RED BLOOD CELL CT 5.98 /CUMM (4.70-6.10); WHITE BLOOD CELL COUNT 8.9 /CUMM (4.8-10.8)
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
[2018-03-13 09:15] VITALS: BP 136/77
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
[2018-03-13 13:20] VITALS: BP 141/92
[2018-03-13 13:27] VITALS: BP 141/92
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
[2018-03-13] MEDS ORDERED: LYRICA150 M1 PO (15:03)
[2018-03-13 16:22] VITALS: BP 146/94
[2018-03-13 19:51] VITALS: BP 160/94
[2018-03-13 21:24] VITALS: BP 152/93
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
[2018-03-14] VITALS (11 sets, daily range): BP systolic 128–159; BP diastolic 73–98
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
--- NOTE | 2018-03-14 16:19 | CP SOUTH PROGRESS NOTE PSYCH ---
Psych (Inpt) Progress Note Progress Note Progress Note: Edwin is a 42 year old M with hx depression, suicidal ideation and alcohol abuse. He was admitted for worsening depressive symptoms, relapse of alcohol and anxiety in the context of stopping his medication after a surgery. Today, pt feels "good" and denied any issues. He reported good sleep and appetite. He denied any issue with energy level or anxiety. HE thinks restarting his medication will help with his mood and anxiety "just give time". He denied any suicidal thought, plan or wishes of . He denied any hallucination. He denied any medication side effect. PER RN report, pt did well. Denied any suicidality. He did not require CIWA. No behavioral issues. MMSE: PT was AOx3. He was appropriately dress and well groomed. Good eye contact. He was cooperative and engaged. His thoughts were linear and goal directed. No suicidal thought or homicidal thoughts or psychosis or halluicnation. His speech was normal rate. His insight and judgement is fair. Diagnoses: Major Depressive Disorder, recurrent, currently severe with out psychosis Alcohol abuse Assessment: He is doing better today. No mood issue or suicidality or withdrawal symptoms. Will continue medication. Treatment Plan: Current Medications Sig/José Start time Last Medication Dose Route Stop Time Status Admin Amlodipine Besylate 10 MG DAILY 03/13 1250 AC 03/14 PO 0810 Benztropine Mesylate 1 MG Q6P PRN 03/13 1215 AC PO Benztropine Mesylate 1 MG Q6P PRN 03/13 1215 AC IM Fluticasone 2 SPRAY DAILY 03/14 1112 AC 03/14 Propionate IHSAN 1228 Gabapentin 300 MG QAM 03/14 0900 AC 03/14 PO 0810 Gabapentin 900 MG AT BEDTIME 03/13 2100 AC 03/13 PO 2218 Gabapentin 600 MG 1300 03/13 1300 AC 03/14 PO 1229 Haloperidol 5 MG Q6P PRN 03/13 1215 AC PO Haloperidol 5 MG Q6P PRN 03/13 1215 AC IM Hydromorphone HCl 2 MG TID PRN 03/13 1300 AC 03/14 PO 0223 Lorazepam 1 MG Q1P PRN 03/13 2223 AC PO Lorazepam 2 MG Q1P PRN 03/13 2223 AC PO Losartan Potassium 25 MG DAILY 03/13 1252 AC 03/14 PO 0810 Nicotine 2 MG Q2 HRS NEEDED PRN 03/13 1445 AC PO Nicotine 21 MG DAILY 03/13 1445 AC 03/14 TOP 0547 Omeprazole 40 MG DAILY AC 03/13 1253 AC 03/14 PO 0547 Oxymetazoline HCl 2 SPRAY BID 03/14 1112 AC 03/14 IHSAN 03/18 2101 1228 Pregabalin 150 MG TID 03/13 1400 AC 03/14 PO 1344 Tetrahydrozoline HCl 1 GTT BID 03/14 2100 DC OPH Tetrahydrozoline HCl 1 GTT BID 03/14 1215 AC 03/14 OPH 1228 Tetrahydrozoline HCl 1 GTT BID 03/14 1112 DC OPH - Continue CIWA - Continue Neurontin 900 mg QHS and 600mg QAM
[2018-03-15] VITALS (9 sets, daily range): BP systolic 132–157; BP diastolic 77–92
--- NOTE | 2018-03-15 12:58 | CP SOUTH PROGRESS NOTE PSYCH ---
Psych (Inpt) Progress Note Progress Note Edwin is a 42 year old M with hx depression, suicidal ideation and alcohol abuse. He was admitted for worsening depressive symptoms, relapse of alcohol and anxiety in the context of stopping his medication after a surgery. Today, pt feels good. He complained off back aches. He asked for another medication that Diladid. He wanted a non narcotic. He is sleeping well. He denied any depression or anxiety. He denied any medication side effect. D/C CIWA and trial of lidocain patch. PER RN report, pt did well. He did not require CIWA. No behavioral issues. MMSE: PT was AOx3. He was appropriately dress and well groomed. Good eye contact. His speech was normal rate. He was cooperative and engaged. His thoughts were linear and goal directed. No suicidal thought or homicidal thoughts or psychosis or halluicnation. His insight and judgement is fair. Current Medications Sig/José Start time Last Medication Dose Route Stop Time Status Admin Amlodipine Besylate 10 MG DAILY 03/13 1250 AC 03/15 PO 0824 Benztropine Mesylate 1 MG Q6P PRN 03/13 1215 AC PO Benztropine Mesylate 1 MG Q6P PRN 03/13 1215 AC IM Fluticasone 2 SPRAY DAILY 03/14 1112 AC 03/15 Propionate IHSAN 0823 Gabapentin 300 MG QAM 03/14 0900 AC 03/15 PO 0824 Gabapentin 900 MG AT BEDTIME 03/13 2100 AC 03/14 PO 2130 Gabapentin 600 MG 1300 03/13 1300 AC 03/14 PO 1229 Haloperidol 5 MG Q6P PRN 03/13 1215 AC PO Haloperidol 5 MG Q6P PRN 03/13 1215 AC IM Hydromorphone HCl 2 MG TID PRN 03/13 1300 AC 03/15 PO 0326 Lorazepam 1 MG Q1P PRN 03/13 2223 AC PO Lorazepam 2 MG Q1P PRN 03/13 2223 AC PO Losartan Potassium 25 MG DAILY 03/13 1252 AC 03/15 PO 0823 Nicotine 2 MG Q2 HRS NEEDED PRN 03/13 1445 AC PO Nicotine 21 MG DAILY 03/13 1445 AC 03/15 TOP 0631 Omeprazole 40 MG DAILY AC 03/13 1253 AC 03/15 PO 0602 Oxymetazoline HCl 2 SPRAY BID 03/14 1112 AC 03/14 IHSAN 03/18 2101 1228 Pregabalin 150 MG TID 03/13 1400 AC 03/15 PO 0826 Tetrahydrozoline HCl 1 GTT BID 03/14 2100 DC OPH Tetrahydrozoline HCl 1 GTT BID 03/14 1215 AC 03/15 OPH 0824 Vital Signs Date Time Temp Pulse Resp B/P B/P Pulse O2 O2 Flow FiO2 Mean Ox Delivery Rate 03/15 1215 97.1 92 151/92 03/15 0827 97.1 92 157/92 03/15 0824 60 141/84 03/15 0823 60 141/84 03/15 0800 97.1 92 157/92 03/15 0454 97.3 60 141/84 03/15 0315 97.2 72 132/77 03/15 0115 97.8 83 141/84 03/15 0004 104 95 03/14 2240 97.7 86 147/97 03/14 2020 96.1 92 143/98 03/14 2019 96.1 92 143/98 03/14 1531 84 133/81 Diagnoses: Major Depressive Disorder, recurrent, currently severe with out psychosis Alcohol abuse Assessment: He is stable. Did not use CIWA. Treatment Plan: - CD/C CIWA - Continue Neurontin 900 mg QHS and 600mg QAM - Lidocain patch
[2018-03-16 03:12] VITALS: BP 131/81
[2018-03-16 07:44] VITALS: BP 145/87
[2018-03-16 07:53] VITALS: BP 145/87
--- NOTE | 2018-03-16 08:45 | CP SOUTH PROGRESS NOTE PSYCH ---
Psych (Inpt) Progress Note Progress Note I reviewed Dr. Carter's notes (covering for the weekend of 03/14 and 2017). The patient's progress, treatment plan, and aftercare plans were discussed in the treatment team meeting this morning. Team members included: LCSWs, RNs, OTR/ L, Activities Therapist, and Psychiatrist. Vital Signs Date Time Temp Pulse Resp B/P B/P Pulse O2 FiO2 03/16 912 97.2 100 97 145/87 03/16 0911 97.2 100 97 145/03/16 0753 97.2 100 145/87 03/16 0744 97.2 100 145/87 03/16 0312 97.3 68 131/81 03/15 2000 97.9 94 155/92 03/15 1953 94.0 94 97 155/92 Mental Status Examination: The patient was steady in his gait. Unshaven, Pleasant and cooperative, Normal psychomotor activity, No abnormal or bizarre behaviors, Normal speech, Showed good range of affect, Has been feeling anxious and depressed, Denied thinking of suicide today, Denied thinking of homicide today, Denied hallucinations, Denied feeling paranoid, there were no delusions during the interview Coherent, no thought disorder, Partial insight, Questionable judgment, He was alert and oriented to time, place, and person. Patient did not seem to have any difficulties with information processing. Assessment: 42-year-old white male who was brought to the emergency department after the police were called in by the neighbors. The police was brought and brought the patient on a police emergency examination request alleging that he made suicidal and homicidal statements. The patient was intoxicated at the time. Patient reported today (03/16/2018) that he is homeless Diagnoses: Unspecified depressive disorder Posttraumatic stress disorder by history Alcohol use disorder Other specified personality disorder Chronic pain disorder Treatment Plan Update: Add Cymbalta 120 mg daily (looks like it was not added on Friday) Increase gabapentin to 600 AM, 900 mg afternoon and 1200 mg at bedtime Orientation: He was alert and oriented to time, place, and person. Cognition: Patient did not seem to have any difficulties with information processing. Memory Function: Normal Assessment: 42-year-old white male who was brought to the emergency department after the police were called in by the neighbors. The police was brought and brought the patient on a police emergency examination request alleging that he made suicidal and homicidal statements. The patient was intoxicated at the time. Diagnosis(es): Unspecified depressive disorder Posttraumatic stress disorder by history Alcohol use disorder Other specified personality disorder Chronic pain disorder Treatment Plan Update: Continue Cymbalta 120 mg daily Continue other medications unchanged Nursing assessments, vital signs, and patient education Biopsychosocial assessment, collateral information, and aftercare planning by social work Group therapy, activities therapy, and milieu therapy. The patient will be seen daily by a psychiatrist.
--- NOTE | 2018-03-16 16:12 | SOCIAL WORKER PROG NOTE PSYCH ---
Social Work Progress Note Progress Note MOLLY Will student and this fiction and nonfiction writer prose met with the patient. He identified the trigger leading to this admission, specifically, "a toxic relationship" with his girlfriend. Patient stated that he will be unable to return to living with his girlfriend and provided a letter from the [facility] ( letter was placed in his chart). Patient stated that he has no other housing options and does not have any family or friends that he could stay with. He is not willing to stay in a longterm due to his medical conditions and being unable to leave during the day. He was agreeable to calling 211 to inquire about shelters that he could stay in during the day time hours. Patient stated that he was experiencing thoughts to choke the individual who called the housing authority. He reported SI with thoughts to "put my fist through the fish tank and cut my throat with the glass." He also stated that he had thoughts to step in front of a truck, but stated that this would "destroy the truck driver's offsider's life." Patient denied any current legal issues and reported his last legal involvment about 5 years ago related to having a pistol/revolver. Patient denies any current access to guns/firearms. Patient denied substance use and stated that he drinks alcohol rarely, "about once a month, a couple drinks with dinner." Patient denied hallucinations and stated that he only experiences VH when he goes days without sleeping. Patient stated that he has funds through social security, but has been unable to access them due to living with his girlfriend. This fiction and nonfiction writer prose discussed [facility] with the patient, and he was agreeable to a referral. He was also agreeable to an IOP "if it's close to whereever I will be staying." Patient stated that he feels safe on this unit and is agreeable to informing staff immediately if feeling unsafe. Patient refused a family meeting. 3:59pm This fiction and nonfiction writer prose left a vm for MARTIN Justin at ext. [phone]
--- NOTE | 2018-03-16 18:48 | SOCIAL WORKER PROG NOTE PSYCH ---
Social Work Progress Note Progress Note Determination Status: PENDED The services requested require additional review. You will be contacted regarding the status of this request if further information is needed. An authorization decision will be made within the required timeframes and details of that decision may be found under the member's authorization history. Member Name Member ID Member Subscriber Name Subscriber ID SOURAV MOREJON [id number] SOURAV Melgar JEAN-PIERRE [id number] Pended Authorization # Client Authorization # Type of Request [id number] CONCURRENT Date of Admission/ Start of Services Requested From Submission Date 03/13/2018 03/16/2018 03/16/2018 Level of Service Type of Service Level of Care Type of Care INPATIENT/[facility] - INPATIENT [facility]OSPITAL Reason Code P76 Provider Name & Address Provider ID Provider Alternate ID NPI # for Authorization SONNY LEROY [facility] [id number]
[2018-03-16 19:50] VITALS: BP 155/93
[2018-03-17 07:37] VITALS: BP 136/77
--- NOTE | 2018-03-17 07:53 | CP SOUTH PROGRESS NOTE PSYCH ---
Psych (Inpt) Progress Note Progress Note The patient's progress, treatment plan, and aftercare plans were discussed in the treatment team meeting this morning. Team members included: LCSWs, RNs, OTR/ L, Activities Therapist, and Psychiatrist. Vital Signs: Date Time Temp Pulse Resp B/P B/P O2 03/17 0737 98.2 96 136/77 03/16 1950 97.8 88 155/93 03/16 0912 97.2 100 97 145/87 03/16 0911 97.2 100 97 145/87 Mental Status: The patient reported that he slept very well last night (he said the first good night sleep in a while). He looked well rested and in good spirits this morning. He was was alert and oriented to time, place, and person. He was pleasant and cooperative, showed normal psychomotor activity, no abnormal or bizarre behaviors, normal speech, he reported feeling less anxious and less depressed, he denied thinking of suicide today, I calrified what was mentioned about homicide, he said that he has a temper and may have said something about homicide, but he does not intent to take matters into his own hand and talked about consulting a manager retail sales because he thinks that his rights were violated by the land lord, he said he has no intentions of killing anyone, he is focused on finding a place to stay and he gets money to buy a van and possibly leave the state, he denied hallucinations, denied feeling paranoid, there were no delusions during the interview. He was coherent, no thought disorder, questionable judgment, he did not seem to have any difficulties with information processing. Assessment: Edwin is a 42-year-old white male who was admitted because he allegedly made suicidal and homicidal statements. The patient was intoxicated at the time. As of today he denied thinking of killing self or anyone else Diagnoses (updated 03/17/2018): Unspecified Depressive Disorder Alcohol use disorder Other specified personality disorder Chronic pain disorder Treatment Plan Update: Continue same medications.
--- NOTE | 2018-03-17 11:19 | SOCIAL WORKER PROG NOTE PSYCH ---
Social Work Progress Note Progress Note Mayo from [facility] will be assigned to work with Edwin, I spoke to Samantha and she said she would try to have Mayo come out before he discharges to meet him briefly.
--- NOTE | 2018-03-17 17:20 | SOCIAL WORKER PROG NOTE PSYCH ---
Social Work Progress Note Progress Note MOLLY Will student and this race and sports book writer met with patient. He stated, "I had a great night's sleep last night" which he attributed to the medications. He described his mood as "good." He denied HI/hallucinations. Patient was informed that the [facility] referral had been submitted, but he had not met with someone from [facility] yet. This race and sports book writer called Samantha Shaji with [facility] (ext. [phone]) . Upon her inquiry, she was provided with patient's current medical history. Samantha stated that the patient had been assigned to dAy Solis and that he would attempt to meet with the patient tomorrow. Samantha was also informed that the patient states that he has social security/disability and has been unable to access his funds due to living with his ex-girlfriend until this admission. She suggested that he contact social security regarding this matter and inquire as to how he can show that he is no longer living with her. Patient agreed to do so and stated that the phone number is in his phone. This race and sports book writer requested that a [facility] mental health worker assist him in retrieving the phone number. Patient will also call 211 to inquire about the process for the CAN assessment. He continues to refuse to go to a assisted that will require him to leave during the day.
[2018-03-17 20:05] VITALS: BP 157/83
[2018-03-18 07:39] VITALS: BP 128/77
--- NOTE | 2018-03-18 07:58 | CP SOUTH PROGRESS NOTE PSYCH ---
Psych (Inpt) Progress Note Progress Note The patient's progress, treatment plan, and aftercare plans were discussed in the treatment team meeting this morning. Team members included: LCSWs, RNs, OTR/ L, Activities Therapist, and Psychiatrist. Vital Signs: Date Time Temp Pulse B/P 03/18 0743 96.6 78 128/77 03/18 0742 96.6 78 128/77 03/18 0739 96.6 78 128/77 Mental Status: The patient was very angry because he was asked to switch to a different phone ( he was using one of the group rooms) He was was alert and oriented to time, place, and person. He was pleasant and cooperative, showed normal psychomotor activity, no abnormal or bizarre behaviors, normal speech, he reported feeling less anxious and less depressed, he denied thinking of suicide today, denied thoughts of homicide, he denied hallucinations, denied feeling paranoid, there were no delusions during the interview. He was coherent, no thought disorder, questionable judgment, he did not seem to have any difficulties with information processing. Very poor impulse control and poor emotion regulation Assessment: Edwin is a 42-year-old white male who was admitted because he allegedly made suicidal and homicidal statements. The patient was intoxicated at the time. Pt. is homeless, he denied thinking of killing self or anyone else Diagnoses (updated 03/17/2018): Unspecified Depressive Disorder Alcohol use disorder Other specified personality disorder Chronic pain disorder Treatment Plan Update: Continue same medications.
--- NOTE | 2018-03-18 16:12 | SOCIAL WORKER PROG NOTE PSYCH ---
Social Work Progress Note Progress Note Patient was seated in the group room on hold waiting to speak with social security/disability. This chart writer approached him to inform that a group was waiting to start, inform him that Ady Solis from [facility] would be coming down to meet with him and to assist him to move to a different phone to continue the call. Before this could be fully explaing to him, the patient became very agitated, slamming the handset on the phone and leaving the room. Patient was initially agreeable to meeting, however, his agitation increased and, due to his loud profanity, nursing intervened. Patient went immediately to Dr. Rene's office. This chart writer joined the beginning of the meeting with Ady Solis from [facility] and the patient. Ady shared the services that he can offer. Patient shared that he has scheduled a CAN assessment with the [facility] on 03/23/18, between 12 and 1:30pm. He further explained that he cannot go to a longterm that requires him to leave during the day due to medical conditions. Patient and Ady continued to meet after this chart writer left the meeting. Ady will follow up with the covering social media intern tomorrow (as this chart writer will be away).
[2018-03-18 19:52] VITALS: BP 139/89
[2018-03-19 07:35] VITALS: BP 148/92
--- NOTE | 2018-03-19 07:45 | CP SOUTH PROGRESS NOTE PSYCH ---
Psych (Inpt) Progress Note Progress Note The patient's progress, treatment plan, and aftercare plans were discussed in the treatment team meeting this morning. Team members included: LCSWs, RNs, OTR/ L, Activities Therapist, and Psychiatrist. Vital Signs: Vital Signs Date Time Temp Pulse Resp B/P 03/19 0816 96.1 84 18 148/92 03/19 0816 96.1 84 18 148/92 03/19 0735 96.1 84 148/92 Mental Status: The patient was alert and oriented to time, place, and person. He was not angry this morning and asked for medication to help him control his anger/impulsivity He showed normal psychomotor activity, no abnormal or bizarre behaviors, normal speech, he reported feeling less anxious and less depressed, he denied thinking of suicide today. He denied thoughts of homicide, denied hallucinations, denied feeling paranoid, there were no delusions during the interview. He was coherent, no thought disorder, questionable judgment, he did not seem to have any difficulties with information processing. Very poor impulse control and poor emotion regulation Assessment: Edwin Miller is a 42-year-old white male who was admitted because he allegedly made suicidal and homicidal statements. The patient was intoxicated at the time. Pt. is homeless, he claims that our discharge plans are not safe because he [place] want to go [place] [facility] [place] Diagnoses (updated 03/17/2018): Unspecified Depressive Disorder Alcohol use disorder Other specified personality disorder Chronic pain disorder History of TBI Treatment Plan Update: Increase gabapentin to 1500 mg at bedtime Continue other medications unchanged.
--- NOTE | 2018-03-19 10:33 | SOCIAL WORKER PROG NOTE PSYCH ---
Social Work Progress Note Progress Note Pt is alert and oriented, he continues to attempt to solve his housing isses, as he states "I'm starting over", and it's tough. He has an intake appt with [place] on 03/23, and is working with Social Security regarding his funds on 04/01. Pt is resourceful, although he can not identify any family or friend that could be helpful, in case he needs to store items, or stay with them for a few days. Pt is anxious about discharging, as he has "no place to go". [facility] is involved and he has spoken to the adithya advocate.
[2018-03-19 19:21] VITALS: BP 134/83
[2018-03-20 07:25] VITALS: BP 145/80
--- NOTE | 2018-03-20 07:41 | CP SOUTH PROGRESS NOTE PSYCH ---
Psych (Inpt) Progress Note Progress Note The patient's progress, treatment plan, and aftercare plans were discussed in the treatment team meeting this morning. Team members included: LCSWs, RNs, OTR/ L, Activities Therapist, and Psychiatrist. Vital Signs: Laboratory Tests 03/20 0630 Chemistry Sodium (137 - 145 mmol/L) 139 Potassium (3.5 - 5.1 mmol/L) 4.5 Chloride (98 - 107 mmol/L) 107 Carbon Dioxide (22 - 30 mmol/L) 22 Anion Gap (5 - 16) 11 BUN (9 - 20 mg/dL) 14 Creatinine (0.7 - 1.2 mg/dL) 0.7 Estimated GFR (>60 ml/min) > 60 BUN/Creatinine Ratio (7 - 25 %) 20.0 TSH &T3 &Free T4 Intrp (0.27 - 4.20 uIU/mL) 2.700 Vital Signs Date Time Temp Pulse Resp B/P B/P Pulse O2 FiO2 03/20 0902 97.7 87 18 145/80 03/20 0901 145/80 03/20 0725 97.7 87 145/80 03/19 1921 97.0 87 134/83 Mental Status: Edwin was alert and oriented to time, place, and person. He was calm this morning (nursing reported that yesterday he got angry and punched a wall) He said he tolerated [place] well/denied side effects He showed normal psychomotor activity, no abnormal or bizarre behaviors, and normal speech. Edwin reported that he's feeling a little less anxious and less depressed, he denied thinking of suicide and denied thoughts of homicide (against neighbor or anyone else) Edwin denied hallucinations, denied feeling paranoid, there were no delusions during the interview. He was coherent, no thought disorder, did not seem to have any difficulties with information processing. poor impulse control and poor emotion regulation Assessment: Edwin Miller is a 42-year-old single white male who was admitted because he allegedly made suicidal and homicidal statements (towards a neighbor who called the dyeing machine tender) . The patient was intoxicated at the time. Pt. is homeless, he claims that our discharge plans are not safe because he has a CPAP machine and has had multiple surgeries, back and knee pain and can't be wandering the streets during the day waiting to get back to the assisted Diagnoses (updated 03/17/2018): Unspecified Depressive Disorder Alcohol Use disorder Other Specified personality disorder Chronic Pain disorder History of TBI Treatment Plan Update: Increase [place] to 300 mg BID Lab work Friday morning (anticipated discharge is Friday) Continue all other medications unchanged.
--- NOTE | 2018-03-20 13:41 | SOCIAL WORKER PROG NOTE PSYCH ---
Social Work Progress Note Progress Note Dr. Madrid and I met with Edwin today. He is concerned about where he will stay upon discharge. He denied SI/HI, no AH/VH. Dr. Rene and I discussed how he cannot punch the sampson and needs to ask for a PRN medication or go to his room to calm down. He agreed. Discussed aftercare and housing - clarified [place]. He has [place] assessment on 03/23/18 at 12noon at [facility] in [place]. Explained that it is no guarantee that there will be a bed available. Informed his best option would be [place] [facility] [place] - arrive by 3-4pm to wait in line for a bed, or [facility]. Referral was made to [facility] [place] and [place] - Faxed today. Check on 03/23 if beds available. Patient reports he only drinks 4 drinks per month - so he does not meet criteria for a sober house. Plan is for patient to go to [facility] - walk-in intake depending on where he is staying - [place], [place], [place], etc. He stated he needs medical follow- up appointments made - will assist with this as well. He understands his discharge is 03/23. He was grateful for support. He has his 1st disability check about $700 coming in on 04/01 - stated this will give him some options - rent a room. He stated he wants to buy a van and drive to [place] and renovate his van as a camper - "because parts are cheaper there." Encouraged him to stay in treatment and medications whereever he lives.
--- NOTE | 2018-03-20 18:10 | SOCIAL WORKER PROG NOTE PSYCH ---
See Addendum Social Work Progress Note Progress Note Met with Edwin and he signed SCOTT's for his medical providers. He needs follow -up appointments scheduled. Dr. Anil Rendon - Gastrointerologist (had Hernia surgery 6 weeks ago) Dr. Lucero -[facility] Ph#[id number]- Dr. Lambert - Pulmonary [facility] Dr. Balbina Mcdonald - Pain Managment [place]
[2018-03-20 19:25] VITALS: BP 141/89
[2018-03-21 08:06] VITALS: BP 149/89
--- NOTE | 2018-03-21 16:21 | CP SOUTH PROGRESS NOTE PSYCH ---
Psych (Inpt) Progress Note Progress Note Include the following elements, when applicable: Involvement in the active treatment of the patient with behavioral observations of the patient and the patient's response to the treatment. Review of the ongoing treatment process in the context of the treatment plan. Indication of how multi-disciplinary staff members are carrying out the treatment plan. Plans for future interventions and recommendations for revision of the treatment plan. Liaison with other physicians/providers. Progress Note: 42 years old single white male patient was seen on the unit today he reports of slowly turning around his depressive feelings and likes the current medication combination of Cymbalta and Neurontin medications for his pain and denies of any thoughts to hurt himself or others in hopes to improve his communication patterns improve his coping skills and work towards his discharge and to find some new friends and move for works with positive thoughts. Brief mental status observation the patient is a well-built male individual who is able to ambulate well without any assistive devices. He has no unusual motor patterns is alert and oriented to time place and person and is able to express a range of affect. Tones which ego-syntonic and does recognize the current medications trying to overcome his depressive feelings and being on the path towards recovery. He denies of any thoughts to hurt himself or others he denies of any intrusive thoughts and hallucinatory experiences he appears to have average intelligence and is working towards improving his social contacts after his discharge Diagnostic impression major depressive disorder Chronic pain issues Status post surgery for umbilical hernia recently hernia repair Recommendations concur with the current team's recommendations for medications Consider discharge when stable with follow-up appointments in the community Dictated by Dr. Shetty
[2018-03-21 20:10] VITALS: BP 154/92
[2018-03-22 07:40] VITALS: BP 140/87
--- NOTE | 2018-03-22 09:49 | CP SOUTH PROGRESS NOTE PSYCH ---
Psych (Inpt) Progress Note Progress Note Include the following elements, when applicable: Involvement in the active treatment of the patient with behavioral observations of the patient and the patient's response to the treatment. Review of the ongoing treatment process in the context of the treatment plan. Indication of how multi-disciplinary staff members are carrying out the treatment plan. Plans for future interventions and recommendations for revision of the treatment plan. Liaison with other physicians/providers. Progress Note: 42 years old single white male patient was seen on the unit this morning. He was able to ambulate well without any unusual motor patterns he was also able to maintain good eye contact during this discussion about his problems mainly of housing in the community and is expected to be discharged tomorrow and has concerns about going to skilled nursing however he hopes he will get a place in [place] if not emailed to look into other options. He is able to express his long-standing problems with impulse control issues and hopes to have control of his thoughts and feelings without reacting to impulsive tendencies and getting into legal situations in the community. He denies of intrusive thoughts or hallucinatory experiences he is alert and oriented to time place and person and acknowledges these problems with financial support chronic pain issues and housing issues. He denies of any active thoughts to hurt himself but did not is aware of lack of housing could generate despondence feelings and hopes to avoid that and expects to have a placement [facility] tomorrow. Diagnostic impression major depressive disorder chronic pain syndrome Status post recent surgery for umbilical hernia Treatment recommendations Concurrent with the current medications and suggestions by the team about alternate housing options in the community and follow-up care at [facility] mental health outpatient program. Dictated by Dr. Julio,thank you
[2018-03-22 19:47] VITALS: BP 158/93
[2018-03-23 07:52] VITALS: BP 149/99
[2018-03-23 08:42] VITALS: BP 149/99
--- NOTE | 2018-03-23 08:58 | CP SOUTH PROGRESS NOTE PSYCH ---
Psych (Inpt) Progress Note Progress Note I reviewed Dr. Julio's notes for the weekend of 03/21 and 2017. The patient's progress, treatment plan, and aftercare plans were discussed in the treatment team meeting this morning. Team members included: LCSWs, RNs, Activities Therapist, and Psychiatrist. Vital Signs: Vital Signs Date Time Temp Pulse Resp B/P B/P Pulse O2 O2 Flow FiO2 03/23 0842 96.7 75 18 149/99 03/23 0842 96.7 75 18 149/99 03/23 0752 96.7 75 149/99 03/22 1947 97.4 100 158/93 Mental Status: Edwin was alert and oriented to time, place, and person. He was calm and cooperative. He showed normal psychomotor activity, no abnormal or bizarre behaviors, and normal speech. Edwin reported that he's feeling anxious about discharge and not knowing whether [facility] will have a bed for him or not. less depressed, he denied thinking of suicide and denied thoughts of homicide ( against neighbor or anyone else) Edwin denied hallucinations, denied feeling paranoid, there were no delusions during the interview. He was coherent, no thought disorder Treatment Plan Update: D/C directly to [facility] assessment emotion regulation Assessment: Edwin Miller is a 42-year-old single white male who was admitted because he allegedly made suicidal and homicidal statements (towards a neighbor who called the secondary art teacher) . The patient was intoxicated at the time. Pt. is homeless, he claims that our discharge plans are not safe because he has a CPAP machine and has had multiple surgeries, back and knee pain and can't be wandering the streets during the day waiting to get back to the senior living Diagnoses (updated 03/17/2018): Unspecified Depressive Disorder Alcohol Use disorder Other Specified personality disorder Chronic Pain disorder History of TBI Treatment Plan Update: Increase Ben Bolt to 300 mg BID Lab work Friday morning (anticipated discharge is Friday) Continue all other medications unchanged.
[2018-03-23] MEDS ORDERED: ATORVASTATIN CA80 M1 PO (11:11)
[2018-03-23] MEDS ORDERED: NEURONTIN300 M1 PO (11:11)
[2018-03-23] MEDS ORDERED: AMLODIPINE BESY10 M1 PO (11:11)
[2018-03-23] MEDS ORDERED: LOSARTAN POTASS25 M1 PO (11:11)
[2018-03-23] MEDS ORDERED: NICOTINE PATCH1 EAC3 TOP (11:11)
[2018-03-23] MEDS ORDERED: LYRICA150 M1 PO (11:11)
[2018-03-23] MEDS ORDERED: PANTOPRAZOLE SO40 M1 PO (11:14)
[2018-03-23] MEDS ORDERED: DULOXETINE HCL60 MG PO (11:14)
[2018-03-23] MEDS ORDERED: LITHIUM CARBON150 M1 PO (11:14)
--- NOTE | 2018-03-23 11:15 | Patient Discharge Instructions ---
Psych Discharge Inst General Discharge Information Reason for Admission: thoughts of suicide and homicide Psy Discharge Primary Diag+ Unspecified Depressive Di Psy Discharge Secondary Diag+ Alcohol Dependence Summary Tests/Major Procedures Laboratory Tests 03/20 0630 Chemistry Sodium (137 - 145 mmol/L) 139 Potassium (3.5 - 5.1 mmol/L) 4.5 Chloride (98 - 107 mmol/L) 107 Carbon Dioxide (22 - 30 mmol/L) 22 Anion Gap (5 - 16) 11 BUN (9 - 20 mg/dL) 14 Creatinine (0.7 - 1.2 mg/dL) 0.7 Estimated GFR (>60 ml/min) > 60 BUN/Creatinine Ratio (7 - 25 %) 20.0 TSH &T3 &Free T4 Intrp (0.27 - 4.20 uIU/mL) 2.700 Studies Pending at DC: [place] monitoring blood work Patient Instructions Contact Information Your Psychiatrist on [facility] was Anju BUI,[place] * If you are experiencing an emergency related to this hospitalization, please call [phone] to contact the treating psychiatrist or the psychiatrist-on- call. * To Request a copy of your medical records, please contact the Medical Records Department at [phone]. * To request results of studies pending at the time of discharge, please call [phone]. * Continue your Medications until directed to stop by your Healthcare provider. General Medication Information Please continue to take your new medications and your continued home medications , unless otherwise indicated on your discharge medication list, or unless directed by your MD or ELEVATOR ADJUSTER to stop them. Special Instructions Diet Regular Activity Normal - Tobacco Use Treatment Offered Post DC Medications Offered: Script Given-See Med List Post DC Tobacco Treatment Plan: Refused Tobacco Tx Pgm - EtOH/Drug Use D/O Treatment Offered Post DC Medications Offered: Med Not Indicated for D/O Post DC EtOH/SubAbuse TX Plan: Other SubAbuse/Dual Pgm Metabolic Screening Not Applicable, patient not on a neuroleptic. Advance Directives Does the Patient have Medical Advance Directives No/Refused further info Does Pt have Psychiatric Advance Directives? No/Refused further info Does Patient have a Designated Surrogate Decision Maker: No Information About Psychiatric Advance Directives Provided? Refused Discharge Plan Post Hospital Treatment Plan: See referrals section
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
--- NOTE | 2018-03-23 12:19 | SOCIAL WORKER PROG NOTE PSYCH ---
Social Work Progress Note Faxed Referral(s) Referred To: Pulmonary Transition of Care Documents sent: Health Summary Faxed to: Dr Lambert Fax #: [phone] Faxed by: Mary Date faxed: 03/23/18 Time Faxed: [phone] Comment: Luli Jordan" Miki-Psychiatric W
--- NOTE | 2018-03-23 12:23 | SOCIAL WORKER PROG NOTE PSYCH ---
Social Work Progress Note Faxed Referral(s) Referred To: Gastrointerologist Transition of Care Documents sent: Health Summary Faxed to: Dr Anil Rendon Fax #: [phone] Faxed by: Mary Date faxed: 03/23/18 Time Faxed: [phone] Comment: Luli Jordan" [facility]-Psychiatric W
--- NOTE | 2018-03-23 12:25 | SOCIAL WORKER PROG NOTE PSYCH ---
Social Work Progress Note Faxed Referral(s) Referred To: [facility]-PCP Transition of Care Documents sent: Health Summary Faxed to: Dr Lucero Fax #: [phone] Faxed by: Mary Date faxed: 03/23/18 Time Faxed: [phone] Comment: Luli Jordan" [facility]-Psychiatric W
--- NOTE | 2018-03-23 12:26 | SOCIAL WORKER PROG NOTE PSYCH ---
Social Work Progress Note Faxed Referral(s) Referred To: [facility] Transition of Care Documents sent: Health Summary Faxed to: Arianne Fax #: [phone] Faxed by: Mary Date faxed: 03/23/18 Time Faxed: [phone] Comment: Luli Jordan" [facility]-Psychiatric W
--- NOTE | 2018-03-23 13:12 | SOCIAL WORKER PROG NOTE PSYCH ---
Social Work Progress Note Faxed Referral(s) Referred To: Pain Management Transition of Care Documents sent: Health Summary Faxed to: Dr Balibna Mcdonald Fax #: [phone] Faxed by: Mary Date faxed: 03/23/18 Time Faxed: [phone] Comment: Luli Jordan" [facility]-Psychiatric W
--- NOTE | 2018-03-23 15:18 | SOCIAL WORKER PROG NOTE PSYCH ---
Social Work Progress Note Progress Note Psychiatric CHW Note Determination Status: DISCHARGE COMPLETED Thank you. You have completed your discharge for this episode of care. Member Name Member ID Member Subscriber Name Subscriber ID SOURAV MOREJON [id number] SOURAV MOREJON [id number] Related Authorization # Related Client Authorization # Discharge # Discharge Date [id number] 03/23/2018 Level of Service Type of Service Level Of Care Type of Care IP - INPATIENT/HLOC P - MENTAL HEALTH I - INPATIENT CIP - INPATIENT HOSPITAL - INPATIENT HOSPITAL Provider Name & Address Provider ID Provider Alternate ID MEHRAN SAM [id number] [address] [place] [address] [phone]
--- NOTE | 2018-03-23 17:02 | SOCIAL WORKER PROG NOTE PSYCH ---
Social Work Progress Note Progress Note This auto service writer met with patient. He was agreeable to discharge today and felt safe to discharge. He stated that he plans to go to [facility] between 12pm and 1 :30pm for a CAN assessment. If he is not given an immediate bed, patient stated that he will go to [facility] for their emergency residential. He confirmed the address and phone number prior to leaving. He also showed this auto service writer the [facility] list that he was provided last week. Patient stated that he will utilize [facility] in [place] for their IOP walk in hours and was agreeable to the patient health summary sent to [facility]. He was also provided the address and phone numbers to [place] and [facility] locations. Patient will contact this auto service writer should he decide to pursue treatment at a different [facility] or different [facility] location in order for the patient health summary to be sent to the next level of care. Upon his requestthe patient was provided with the phone numbers to [place] and [place] [facility] locations. This auto service writer spoke marilee Brown at [facility] Respite and Leena at [place] [facility] to confirm that the numbers could be provided. No bed availability at either location at this time. Patient stated that he will contact Ady Solis with [facility] following discharge to schedule an appointment. He was provided with Ady's phone number and this auto service writer informed Ady (at 10:30am; ) of today's discharge and discharge plan. Patient accepted the additional medical appointments as listed below: -Dr. Anil Rendon - Appt. 03/26/18 2pm -Dr. Lucero -PCP - Appt.: 03/31/18 3:15 -Dr. Lambert - Appt.: 04/02/18 at 10:15am -Dr. Balbina Mcdonald - *patient will call to schedule an appointment (an appointment had orginally been scheduled for 03/24/18, however, patient requested that this appointment was cancelled as he stated that he would need to schedule a medical ride and will call the office himself to reschedule. A voicemail was left at the doctor's office regarding this). Patient denied SI/HI/hallucinations. He identified a safety plan to "go to the hospital." After discussing with Ady Solis, this auto service writer was informed of CCT, which he agreed to sign. Patient was scheduled a Lyft ride to [facility].
== END 2018-03-23 12:22 | DRG 754 ==
LOC: ERH 21:12 → ERHI 03-13 09:14 → CP SOUTH 03-13 09:14 → ENTRNSPT 03-13 12:51 → EDTRNSPT 03-13 12:53 → EDTRNSPTSTS 03-13 12:53 → CP SOUTH 03-13 13:02 → CMPTRNSPT 03-13 13:53 → CP SOUTH 03-16 10:27
PROVIDERS: Emergency Medicine; Psychiatry & Neurology Psychiatry
DX: F32.9 Major depressive disorder, single episode, unspecified (principal)
CPT/HCPCS: 36415; 80307; G0480; J0515; J1630

== ENCOUNTER 2018-03-23 22:43 | Emergency (ER) | payer OTHER ==
[~2018-03-23] VITALS: Ht 175.3 cm; Wt 95.3 kg
[~2018-03-23 22:43] MED LIST changes: +LITHIUM CARBON150 M1 PO; +LOSARTAN POTASS25 M1 PO; +LYRICA150 M1 PO; +NEURONTIN300 M1 PO; +NICOTINE PATCH1 EAC3 TOP
[2018-03-23 23:22] LABS: ABSOLUTE BASOPHIL COUNT 0 /CUMM (0.0-0.2); ABSOLUTE EOSINOPHIL COUNT 0.2 /CUMM (0.0-0.7); ABSOLUTE GRANULOCYTE CT 9.6 /CUMM (1.4-6.5); ABSOLUTE LYMPH COUNT 1.8 /CUMM (1.2-3.4); ABSOLUTE MONOCYTE COUNT 1.2 /CUMM (0.10-0.60); BASOPHIL % 0.3 % (0.0-2.0); EOSINOPHIL % 1.5 % (0-5); GRANULOCYTE % 74.5 % (42.2-75.2); HEMATOCRIT 44.4 % (42-52); MEAN CORPUSCULAR HGB 29.1 PG (27.0-31.0); MEAN CORPUSCULAR VOLUME 85.5 FL (80.0-94.0); MEAN PLATELET VOLUME 7.5 FL (7.4-10.4); PLATELET COUNT 305 /CUMM (130-400); RBC DISTRIBUTION WIDTH 13.3 % (11.5-14.5); RED BLOOD CELL CT 5.19 /CUMM (4.70-6.10); WHITE BLOOD CELL COUNT 12.9 /CUMM (4.8-10.8)
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
--- NOTE | 2018-03-24 10:45 | ED PSYCHIATRIST/APRN CONSULT ---
Psychiatrist/VIDEO RENTAL CLERK ED Consult Assessment and Plan: Psychiatric consultation Date of consultation 03/24/2018 Reason for consultation: Self cutting Recent episode/ recent psychiatric history: Summary of Su Yusuf LCSW's notes: "Edwin Miller is a 42-year-old single white male who was discharged from [facility] Inpatient Psychiatric unit yesterday. He cam back to ED the same day (in the evening hours) after making superficial cuts to his forearm. Pt. reported that he went to the [facility] for his CAN assessment. He was told that they wouldn't have a bed for 1 week. Pt then took a bus to [facility]. He states that they told him they didn't have any beds. He states CPS told him [facility] was a guaranteed bed. Pt states he took the bus back. He reports he was trying to find somewhere to go. He states he got depressed thinking about how he hd no where to go, no money and no food. Pt states he was thinking about ending his life stating he could either "go slow or go quick". Pt states he cut himself with surgical scissors as a suicide attempt. Pt states the scissors weren't sharp so he called 911. Pt did not require sutures. Pt states he would have felt safe if he had somewhere to go. Patient is suicidal in the context of his homelessness which is new, pt states he became homeless not this past but the before last. Pt states he does feel safe in the hospital. Of note, pt reports 1 prior suicide attempt by overdose of "pills" in 2005, reports he was hospitalizeld in ICU and inpatient psych at [facility] following that attempt." Mental Status/Findings: He is alert and oriented to time, place and person. He was in bed and did not seem to be in physical distress. He showed constricted, depressed affect and reported feeling depressed. He showed reduced psychomotor activity, no abnormal movements, and no motor tics. His speech was limited: seemed discouraged, reported feeling depressed, helpless and still having wishes of and thoughts of suicide (on-off). He reported his anxiety level to be high. He denied thoughts of violence or homicide, Edwin was coherent/ did not have a thought disorder, there were no delusions, he denied hallucinations, there were no memory deficits. Assessment: Edwin Miller is a 42-year-old single white male who was just discharge from the inpatient psychiatric unit yesterday (Pt. is well known to me as he was at [facility] x 10 days: 03/13 to 03/23/2018). Pt. cut self with --reportedly--surgical scissors with suicide intent--reportedly--. He did not require sutures and still despondent, helpless and voicing wishes of and on-off thoughts of suicide still. Although homelessness is a major stressor, he does have the following diagnoses: Diagnoses: Unspecified Depressive Disorder Alcohol Use disorder Other Specified personality disorder Chronic Pain disorder History of TBI Recommendation: I discussed options with patient and he was agreeable to an inpatient psychiatric admission He is aware that our inpatient unit is currently full, he was agreeable to a bed seach for the soonest available inpatient bed Continue the same medications as per discharge yesterday (will make gabapentin a regular schedule)
[2018-03-24 14:49] VITALS: BP 140/81
== END 2018-03-24 18:01 | disposition other institution (70) ==
LOC: ERH 22:43
PROVIDERS: Emergency Medicine
DX: T14.91XA Suicide attempt, initial encounter (principal); F17.210 Nicotine dependence, cigarettes, uncomplicated; I10 Essential (primary) hypertension; K21.9 Gastro-esophageal reflux disease without esophagitis; K42.9 Umbilical hernia without obstruction or gangrene; F32.9 Major depressive disorder, single episode, unspecified; F31.9 Bipolar disorder, unspecified
CPT/HCPCS: 80307; 90471; G0463; G0480